=== PATIENT | female | born 1995 | race African-American/Black ===

== ENCOUNTER 2017-02-02 15:52 | Emergency (ER) | payer OTHER ==
--- NOTE | 2017-02-02 16:50 | Emergency Department Record ---
History of Present Illness - General Chief complaint: Vomiting Stated complaint: VOMITING Time Seen by Provider: 02/02/17 16:33 Source: Patient, RN notes reviewed Mode of Arrival: Ambulatory - History of Present Illness Initial comments: Patient states vomiting and diarrhea and this started yesterday. 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: Diarrhea, Vomiting Onset/Timin -: Days(s) Description of Vomiting: Bilious, Watery Description of Diarrhea: Water Associated Abdominal Pain: Yes Location: Epigastric Radiation: None Severity scale (1-10): 4 Quality: Cramping Consistency: Constant Improves with: Bowel movement Worsens with: None Associated Symptoms: Nausea/vomiting - Related Data Home Medications Medication Instructions Recorded Confirmed Last Taken Acetazolamide 250 mg PO DAILY 02/02/17 02/02/17 Unknown Previous Rx's Medication Instructions Recorded Ondansetron HCl [Zofran] 4 mg PO Q6HR #6 tablet 02/02/17 Allergies Allergy/AdvReac Type Severity Reaction Status Date / Time codeine Allergy SWELLING Verified 02/02/17 16:38 (GENERAL) Travel Screening - Travel/Exposure Within Last 30 Days Have you traveled within the last 30 days?: No Review of Systems Reviewed: No additional complaints except as noted below Constitutional: Reports: As per HPI. Denies: Chills, Fever, Malaise, Night sweats, Weakness, Weight change Eyes: Reports: As per HPI. Denies: Eye discharge, Eye pain, Photophobia, Vision change ENT: Reports: As per HPI. Denies: Congestion, Dental pain, Ear pain, Epistaxis , Hearing loss, Throat pain Respiratory: Reports: As per HPI. Denies: Cough, Dyspnea, Hemoptysis, Stridor, Wheezes Cardiovascular: Reports: As per HPI. Denies: Arrhythmia, Chest pain, Dyspnea on exertion, Edema, Murmurs, Orthopnea, Palpitations, Paroxysmal nocturnal dyspnea, Rheumatic Fever, Syncope Endocrine: Reports: As per HPI. Denies: Fatigue, Heat or cold intolerance, Polydipsia, Polyuria Gastrointestinal: Reports: As per HPI. Denies: Abdominal pain, Constipation, Diarrhea, Hematemesis, Hematochezia, Melena, Nausea, Vomiting Genitourinary: Reports: As per HPI. Denies: Abnormal menses, Discharge, Dyspareunia, Dysuria, Frequency, Hematuria, Incontinence, Retention, Urgency Musculoskeletal: Reports: As per HPI. Denies: Arthralgia, Back pain, Gout, Joint swelling, Myalgia, Neck pain Skin: Reports: As per HPI. Denies: Bruising, Change in color, Change in hair/ nails, Lesions, Pruritus, Rash Neurological: Reports: As per HPI. Denies: Abnormal gait, Confusion, Headache, Numbness, Paresthesias, Seizure, Tingling, Tremors, Vertigo, Weakness Psychiatric: Reports: As per HPI. Denies: Anxiety, Auditory hallucinations, Depression, Homicidal thoughts, Suicidal thoughts, Visual hallucinations Hematological/Lymphatic: Reports: As per HPI. 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 negative: External canal tenderness Nasal Exam: Normal inspection. negative: Discharge, Sinus tenderness Mouth exam: Normal external inspection, Tongue normal Teeth exam: Normal inspection. negative: Dental caries Throat exam: Normal inspection. negative: Tonsillar erythema, Tonsillar exudate - Neck Neck exam: Normal inspection, Full ROM. negative: Tenderness - Respiratory Respiratory exam: Normal lung sounds bilaterally. negative: Respiratory distress - Cardiovascular Cardiovascular Exam: Regular rate, Normal rhythm, Normal heart sounds - GI/Abdominal GI/Abdominal exam: Soft, Normal bowel sounds. negative: Tenderness - Rectal Rectal exam: Deferred - exam: Deferred - Extremities Extremities exam: Normal inspection, Full ROM, Normal capillary refill. negative: Tenderness - Back Back exam: Reports: Normal inspection, Full ROM. Denies: Muscle spasm, Rash noted, Tenderness - Neurological Neurological exam: Alert, Normal gait, Oriented X3, Reflexes normal - Psychiatric Psychiatric exam: Normal affect, Normal mood - Skin Skin exam: Dry, Intact, Normal color, Warm Course Vital Signs 02/02/17 16:33 Temperature 98.8 F Pulse Rate 97 H Respiratory 18 Rate Blood Pressure 113/87 Pulse Ox 99 - Reevaluation(s) Reevaluation #1: feeling better 02/02/17 18:24 Medical Decision Making - Lab Data Result diagrams: 02/02/17 17:15 02/02/17 17:15 Disposition Clinical Impression: Vomiting Qualifiers: Vomiting type: unspecified Vomiting Intractability: non-intractable Nausea presence: with nausea Qualified Code(s): R11.2 - Nausea with vomiting, unspecified Diarrhea Qualifiers: Diarrhea type: unspecified type Qualified Code(s): R19.7 - Diarrhea, unspecified Disposition: Home, Self-Care Condition: (1) Good Instructions: Gastroenteritis (ED) Additional Instructions: clear liquids till tomorrow than bland foods Prescriptions: Ondansetron HCl [Zofran] 4 mg PO Q6HR #6 tablet Forms: Patient Portal Access Time of Disposition: 18:24
[2017-02-02] MEDS: 0.9 % SODIUM CHLORIDE 1,000 ML BAG IV ONE (17:12)
[2017-02-02] MEDS: ONDANSETRON HCL IV 4 MG/2 ML VIAL IV ONE (17:13)
[2017-02-02 17:22] LABS: HEMATOCRIT 41.3 % (35.0-47.0); HEMOGLOBIN 13.5 gm/dl (11.6-16.0); MEAN CELL VOLUME 80.5 fl (81-97); MEAN CORPUSCULAR HEMOGLOBIN 26.3 pg (27-33); MEAN CORPUSCULAR HGB CONC 32.7 g/dl (32-36); MEAN PLATELET VOLUME 11.9 fl (7.4-10.4); PLATELET COUNT 187 K/uL (130-400); RED BLOOD COUNT 5.13 M/uL (3.80-5.40); RED CELL DISTRIBUTION WIDTH 14.9 % (11.5-14.5); WHITE BLOOD COUNT W/O DIFF 6.4 K/uL (4.2-12.2)
[2017-02-02 17:37] LABS: ALBUMIN 4.7 gm/dL (3.5-5.0); ALKALINE PHOSPHATASE 46 U/L (38-126); ALT/SGPT 30 U/L (9-52); ANION GAP 11.3 (7-16); AST/SGOT 26 U/L (14-36); BILIRUBIN,TOTAL 0.66 mg/dL (0.2-1.3); BLOOD UREA NITROGEN 22 mg/dL (7-17); CARBON DIOXIDE 26.7 mmol/L (22-30); CREATININE 1.1 mg/dL (0.52-1.04); EST GLOMERULAR FILTRATION RATE > 60 ml/min; GLUCOSE,RANDOM 98 mg/dL (70-110); LIPASE 29 U/L (23-300); TOTAL PROTEIN 8.2 gm/dL (6.3-8.2)
== END 2017-02-02 18:34 | disposition home or self-care (01) ==
LOC: ER 15:52
DX: R11.2 Nausea with vomiting, unspecified (principal); R19.7 Diarrhea, unspecified
CPT/HCPCS: 99284 ×2; 96374; 96361; 83690; 80076; 80048; 84703; 85027; J2405; J7030